=== PATIENT | male | born 1995 | race Caucasian/White ===

== ENCOUNTER 2019-05-15 19:40 | Emergency (ER) | payer BC, OTHER ==
[2019-05-15] MEDS ORDERED: Sodium Chloride 0.9% 10 ML Syringe FLUSH PRN (20:04)
[2019-05-15] MEDS ORDERED: Sodium Chloride 0.9% 2.5 ML Syringe FLUSH PRN (20:04)
[2019-05-15] MEDS ORDERED: Acetaminophen 500 MG Tab PO ONE (20:05)
[2019-05-15] MEDS ORDERED: Sodium Chloride 0.9% 1,000 ML IV ONE (20:05)
[2019-05-15] MEDS ORDERED: Ketorolac 30 MG/ML SDV IVPUSH ONE (20:05)
[2019-05-15] MEDS ORDERED: Ibuprofen 400 MG Tab PO ONE (20:05)
--- NOTE | 2019-05-15 20:10 | EDM.PDOC ---
ED HPI GENERAL MEDICAL PROBLEM - General Chief Complaint: Fever Stated Complaint: PT HAS BUG BITE ON LT HAND Time Seen by Provider: 05/15/19 19:55 - History of Present Illness INITIAL COMMENTS - FREE TEXT/NARRATIVE: HISTORY AND PHYSICAL: History of present illness: The patient is a healthy 23-year-old male who is up-to-date on his tetanus shot and presents with concerns of about fever subjectively yesterday with 5 episodes of watery green diarrhea and myalgias in today having a documented temperature of 102.430 minutes ago and 4-5 episodes of watery diarrhea. The patient said that last night, 6 days ago, he got bitten by some bugs on his left hand and it had itchiness throbbing and it swelled up on the dorsal aspect of his hand. He is a topical cream and it improved by Monday night, 2 days ago. He said that over the weekend he went to a concert and he was drinking alcohol and enjoying himself and did not feel run down and his hand significantly improved by Monday so he was not concerned. Monday during the day his mother thought that he felt very hot but he did not take his temperature and he had the diarrhea and myalgias but no nausea or vomiting and no abdominal pain cough runny nose sore throat or chills. He was eating and drinking normally. Today he felt hot and sweaty all day and had the diarrhea as described above and his mother took his temp and gave him 400 mg of ibuprofen and came here. He initially had expressed concerns about West Nile and thought that the bug bite had somehow contributed to the fever. The patient tells me that his left hand is back to normal he has no swelling no redness no pain and no neurosensory changes. He has been pushing hydration and having normal urine output without dysuria or frequency and has no flank pain. He has no midline neck or back pain and no swollen glands that he is aware of but says that all of his muscles feel achy and sore not his joints. Review of systems: As per history of present illness and below otherwise all systems reviewed and negative. Past medical history: As per history of present illness and as reviewed below otherwise noncontributory. Surgical history: As per history of present illness and as reviewed below otherwise noncontributory. Social history: No reported history of drug or alcohol abuse. Family history: As per history of present illness and as reviewed below otherwise noncontributory. Physical exam: General: Well-developed well-nourished man who is nontoxic and vital signs are noted by me. He moves easily in ED without distress. HEENT: Atraumatic, normocephalic, pupils reactive, negative for conjunctival pallor or scleral icterus, mucous membranes moist, throat clear, neck supple, nontender, trachea midline. There is no cervical adenopathy anteriorly or posteriorly and no nuchal rigidity Lungs: Clear to auscultation, breath sounds equal bilaterally, chest nontender. Heart: S1S2, regular rhythm and sensory tachycardic rate on my evaluation Abdomen: Soft, nondistended, nontender. Negative for masses or hepatosplenomegaly. Negative for costovertebral tenderness. There is no focal area of tenderness and bowel sounds are normoactive. There is no rebound or guarding. Pelvis: Stable nontender. Genitourinary: Deferred. Rectal: Deferred. Extremities: Atraumatic, negative for cords or calf pain. Neurovascular unremarkable. At his left hand there is a teeny.like scab seen on the dorsal aspect of the left hand near the webspace of digits 2 and 3 but there is no soft tissue swelling no erythema and no fluctuance and no evidence of any skin changes. Patient can move the hand and there is normal flexion and extension and there is no streaking up the arm Neuro: Awake, alert, oriented. Cranial nerves II through XII unremarkable. Cerebellum unremarkable. Motor and sensory unremarkable throughout. Exam nonfocal. Diagnostics: CBC CMP amylase lipase stool for study UA with reflex blood cultures Monospot CPK lactate Mother requests West Nile virus so it will be drawn and sent and they are aware of the timeframe for those results Therapeutics: IV fluids Tylenol, Motrin 400 mg to max out that dose as he took 400 mg at home , Toradol Patient and mother bedside are aware of all testing results and up to this point the patient has not produced a stool sample. He is going to go try to produce one and I will send that if he does and he knows that he will be notified about the West Nile testing as it is available as well as the stool testing if he is able to produce a stool that I can stand. He is fully aware that there is no treatment for West Nile other than symptomatic care and that with the diarrhea is also symptomatic care. I've advised him on hydration and dietary changes, including not eating food but at a gas station, and reasons to return. He is currently afebrile and advised him on dosing of medications over- the-counter Impression: Fever and diarrhea improved Definitive disposition and diagnosis as appropriate pending reevaluation and review of above. 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 [No Known Home Meds] 05/15/19 [History] Past Medical History - Past Surgical History HEENT Surgical History: Reports: Tonsillectomy Social & Family History - Family History Family Medical History: Noncontributory - Tobacco Use Smoking Status *Q: Current Every Day Smoker Years of Tobacco use: 3 Packs/Tins Daily: 1 - Recreational Drug Use Recreational Drug Use: No ED ROS GENERAL - Review of Systems Review Of Systems: ROS reveals no pertinent complaints other than HPI. ED EXAM, GENERAL - Physical Exam Exam: See Below (See dictation) Course - Vital Signs Last Recorded V/S: Last Vital Signs Temp 36.4 C 05/15/19 21:12 Pulse 84 05/15/19 21:12 Resp 16 05/15/19 21:12 BP 124/77 05/15/19 21:12 Pulse Ox 94 L 05/15/19 21:12 - Orders/Labs/Meds Orders: Active Orders 24 hr Category Date Time Status CULTURE BLOOD [BC] Stat Lab 05/15/19 20:15 Received CULTURE BLOOD [BC] Stat Lab 05/15/19 20:21 Received CULTURE STOOL + CAMPY+SHIGATOX [RM] Stat Lab 05/15/19 20:05 Ordered CULTURE URINE [RM] Stat Lab 05/15/19 20:04 Received [facility] [REF] Stat Lab 05/15/19 20:48 Received Sodium Chloride 0.9% [Saline Flush] Med 05/15/19 20:04 Active 10 ml FLUSH ASDIRECTED PRN Sodium Chloride 0.9% [Saline Flush] Med 05/15/19 20:04 Active 2.5 ml FLUSH ASDIRECTED PRN Blood Culture x2 Reflex Set [OM.PC] Stat Oth 05/15/19 20:04 Ordered Saline Lock Insert [OM.PC] Stat Ot 05/15/19 20:03 Ordered Medication Orders Sodium Chloride (Saline Flush) 10 ml FLUSH ASDIRECTED PRN PRN Reason: Keep Vein Open Sodium Chloride (Saline Flush) 2.5 ml FLUSH ASDIRECTED PRN PRN Reason: Keep Vein Open Labs: Laboratory Tests 05/15/19 05/15/19 05/15/19 Range/Units 20:15 20:15 20:15 WBC 5.40 (4.0-11.0) K/uL RBC 5.13 (4.50-5.90) M/uL Hgb 15.4 (13.0-17.0) g/dL Hct 43.7 (38.0-50.0) % MCV 85.2 (80.0-98.0) fL MCH 30.0 (27.0-32.0) pg MCHC 35.2 (31.0-37.0) g/dL RDW Std Deviation 38.0 (28.0-62.0) fl RDW Coeff of Chente 12 (11.0-15.0) % Plt Count 178 (150-400) K/uL MPV 10.10 (7.40-12.00) fL Neut % (Auto) 75.7 (48.0-80.0) % Lymph % (Auto) 10.9 L (16.0-40.0) % Gall[place] % (Auto) 13.0 (0.0-15.0) % Eos % (Auto) 0.2 (0.0-7.0) % Baso % (Auto) 0.2 (0.0-1.5) % Neut # (Auto) 4.1 (1.4-5.7) K/uL Lymph # (Auto) 0.6 (0.6-2.4) K/uL Gall[place] # (Auto) 0.7 (0.0-0.8) K/uL Eos # (Auto) 0.0 (0.0-0.7) K/uL Baso # (Auto) 0.0 (0.0-0.1) K/uL Nucleated RBC % 0.0 /100WBC Nucleated RBCs # 0 K/uL Lactate (0.20-2.00) mmol/L Sodium 136 (136-148) mmol/L Potassium 3.8 (3.5-5.1) mmol/L Chloride 101 (98-107) mmol/L Carbon Dioxide 24.7 (21.0-32.0) mmol/L BUN 15 (7.0-18.0) mg/dL Creatinine 1.4 H (0.8-1.3) mg/dL Est Cr Clr Drug Dosing 80.75 mL/min Estimated GFR (MDRD) > 60.0 ml/min Glucose 151 H (74-106) mg/dL Calcium 8.9 (8.5-10.1) mg/dL Total Bilirubin 0.9 (0.2-1.0) mg/dL AST 27 (15-37) IU/L ALT 21 (14-63) IU/L Alkaline Phosphatase 91 (46-116) U/L Creatine Kinase (26-308) U/L Total Protein 7.1 (6.4-8.2) g/dL Albumin 4.0 (3.4-5.0) g/dL Globulin 3.1 (2.6-4.0) g/dL Albumin/Globulin Ratio 1.3 (0.9-1.6) Amylase 48 (25-115) U/L Lipase 121 (73-393) U/L Urine Color Urine Appearance Urine pH (5.0-8.0) Ur Specific [place] (1.001-1.035) Urine Protein (NEGATIVE) mg/dL Urine Glucose (UA) (NEGATIVE) mg/dL Urine Ketones (NEGATIVE) mg/dL Urine Occult Blood (NEGATIVE) Urine Nitrite (NEGATIVE) Urine Bilirubin (NEGATIVE) Urine Urobilinogen (<2.0) EU/dL Ur Leukocyte Esterase (NEGATIVE) Monoscreen NEGATIVE (NEG) 05/15/19 05/15/19 05/15/19 Range/Units 20:15 20:15 20:45 WBC (4.0-11.0) K/uL RBC (4.50-5.90) M/uL Hgb (13.0-17.0) g/dL Hct (38.0-50.0) % MCV (80.0-98.0) fL MCH (27.0-32.0) pg MCHC (31.0-37.0) g/dL RDW Std Deviation (28.0-62.0) fl RDW Coeff of Chente (11.0-15.0) % Plt Count (150-400) K/uL MPV (7.40-12.00) fL Neut % (Auto) (48.0-80.0) % Lymph % (Auto) (16.0-40.0) % [place] % (Auto) (0.0-15.0) % Eos % (Auto) (0.0-7.0) % Baso % (Auto) (0.0-1.5) % Neut # (Auto) (1.4-5.7) K/uL Lymph # (Auto) (0.6-2.4) K/uL Gall[place] # (Auto) (0.0-0.8) K/uL Eos # (Auto) (0.0-0.7) K/uL Baso # (Auto) (0.0-0.1) K/uL Nucleated RBC % /100WBC Nucleated RBCs # K/uL Lactate 2.1 H (0.20-2.00) mmol/L Sodium (136-148) mmol/L Potassium (3.5-5.1) mmol/L Chloride (98-107) mmol/L Carbon Dioxide (21.0-32.0) mmol/L BUN (7.0-18.0) mg/dL Creatinine (0.8-1.3) mg/dL Est Cr Clr Drug Dosing mL/min Estimated GFR (MDRD) ml/min Glucose (74-106) mg/dL Calcium (8.5-10.1) mg/dL Total Bilirubin (0.2-1.0) mg/dL AST (15-37) IU/L ALT (14-63) IU/L Alkaline Phosphatase (46-116) U/L Creatine Kinase 152 (26-308) U/L Total Protein (6.4-8.2) g/dL Albumin (3.4-5.0) g/dL Globulin (2.6-4.0) g/dL Albumin/Globulin Ratio (0.9-1.6) Amylase (25-115) U/L Lipase (73-393) U/L Urine Color YELLOW Urine Appearance CLEAR Urine pH 6.0 (5.0-8.0) Ur Specific [place] <= 1.005 (1.001-1.035) Urine Protein NEGATIVE (NEGATIVE) mg/dL Urine Glucose (UA) NEGATIVE (NEGATIVE) mg/dL Urine Ketones NEGATIVE (NEGATIVE) mg/dL Urine Occult Blood NEGATIVE (NEGATIVE) Urine Nitrite NEGATIVE (NEGATIVE) Urine Bilirubin NEGATIVE (NEGATIVE) Urine Urobilinogen 0.2 (<2.0) EU/dL Ur Leukocyte Esterase NEGATIVE (NEGATIVE) Monoscreen (NEG) Meds: Medications Generic Name Dose Route Start Last Admin Trade Name Freq PRN Reason Stop Dose Admin Sodium Chloride 10 ml 05/15/19 20:04 Saline Flush FLUSH ASDIRECTED PRN Keep Vein Open Sodium Chloride 2.5 ml 05/15/19 20:04 Saline Flush FLUSH ASDIRECTED PRN Keep Vein Open Discontinued Medications Generic Name Dose Route Start Last Admin Trade Name Freq PRN Reason Stop Dose Admin Acetaminophen 1,000 mg 05/15/19 20:05 05/15/19 20:17 Tylenol Extra Strength PO 05/15/19 20:06 1,000 mg ONETIME ONE Administration Sodium Chloride 1,000 mls @ 999 mls/hr 05/15/19 20:05 05/15/19 20:18 Normal Saline IV 05/15/19 21:05 999 mls/hr STAT ONE Administration Ibuprofen 400 mg 05/15/19 20:05 05/15/19 20:17 Motrin PO 05/15/19 20:06 400 mg ONETIME ONE Administration Ketorolac Tromethamine 30 mg 05/15/19 20:05 05/15/19 20:20 Toradol IVPUSH 05/15/19 20:06 30 mg ONETIME ONE Administration Departure - Departure Time of Disposition: 21:34 Disposition: Home, Self-Care 01 Condition: Good Clinical Impression: Diarrhea Qualifiers: Diarrhea type: unspecified type Qualified Code(s): R19.7 - Diarrhea, unspecified Fever Qualifiers: Fever type: unspecified Qualified Code(s): R50.9 - Fever, unspecified - Discharge Information Referrals: PCP,None [Primary Care Provider] - Forms: ED Department Discharge Additional Instructions: The following information is given to patients seen in the emergency department who are being discharged to home. This information is to outline your options for follow-up care. We provide all patients seen in our emergency department with a follow-up referral. The need for follow-up, as well as the timing and circumstances, are variable depending upon the specifics of your emergency department visit. If you don't have a primary care physician on staff, we will provide you with a referral. We always advise you to contact your personal physician following an emergency department visit to inform them of the circumstance of the visit and for follow-up with them and/or the need for any referrals to a consulting specialist. The emergency department will also refer you to a specialist when appropriate. This referral assures that you have the opportunity for followup care with a specialist. All of these measure are taken in an effort to provide you with optimal care, which includes your followup. Under all circumstances we always encourage you to contact your private physician who remains a resource for coordinating your care. When calling for followup care, please make the office aware that this follow-up is from your recent emergency room visit. If for any reason you are refused follow-up, please contact the [facility] emergency department at and ask to speak to the emergency department charge nurse. [facility] Primary care- [place] [address] Push hydration such as Gatorade juices and water and try to eat a more bland diet. He will be contacted if any of your tests that are send outs are positive. Continue to treat fevers of 100.4 by her with Tylenol, 1000 mg or 2 extra strength every 6 hours, or ibuprofen/Motrin 600 mg every 6 hours or 800 mg every 8 hours. Please call and connect with one of our clinic provider for reevaluation and further care and return to ER as needed and as discussed - My Orders Last 24 Hours: My Active Orders 05/15/19 20:03 Saline Lock Insert [OM.PC] Stat 05/15/19 20:04 CULTURE URINE [RM] Stat Sodium Chloride 0.9% [Saline Flush] 10 ml FLUSH ASDIRECTED PRN Sodium Chloride 0.9% [Saline Flush] 2.5 ml FLUSH ASDIRECTED PRN Blood Culture x2 Reflex Set [OM.PC] Stat 05/15/19 20:05 CULTURE STOOL + CAMPY+SHIGATOX [RM] Stat 05/15/19 20:15 CULTURE BLOOD [BC] Stat 05/15/19 20:21 CULTURE BLOOD [BC] Stat 05/15/19 20:48 [facility] [REF] Stat - Assessment/Plan Last 24 Hours: My Active Orders 05/15/19 20:03 Saline Lock Insert [OM.PC] Stat 05/15/19 20:04 CULTURE URINE [RM] Stat Sodium Chloride 0.9% [Saline Flush] 10 ml FLUSH ASDIRECTED PRN Sodium Chloride 0.9% [Saline Flush] 2.5 ml FLUSH ASDIRECTED PRN Blood Culture x2 Reflex Set [OM.PC] Stat 05/15/19 20:05 CULTURE STOOL + CAMPY+SHIGATOX [RM] Stat 05/15/19 20:15 CULTURE BLOOD [BC] Stat 05/15/19 20:21 CULTURE BLOOD [BC] Stat 05/15/19 20:48 [facility] [REF] Stat
[2019-05-15 20:43] LABS: BLOOD UREA NITROGEN,BUN 15 mg/dL (7.0-18.0); CARBON DIOXIDE,CO2 24.7 mmol/L (21.0-32.0); CHLORIDE,CL 101 mmol/L (98-107); GLUCOSE RANDOM 151 mg/dL (74-106); LIPASE 121 U/L (73-393); POTASSIUM,K 3.8 mmol/L (3.5-5.1); SODIUM,NA 136 mmol/L (136-148)
== END 2019-05-15 21:53 | disposition home or self-care (01) ==
LOC: MW.ED 19:40
DX: R19.7 Diarrhea, unspecified (principal); R50.9 Fever, unspecified; Z98.890 Other specified postprocedural states
CPT/HCPCS: 80053; 81003; 82150; 82550; 83605; 83690; 85025; 86308; 86788; 87040; 87046; 87086; 87899; 96361; 96374; 99282; A9270; J1885; J7040; 99283